=== PATIENT | male | born 1935 | race Caucasian/White ===

== ENCOUNTER 2020-07-27 15:50 | Emergency (ER) | payer OTHER ==
[~2020-07-27] VITALS: Ht 167.6 cm; Wt 75.3 kg
[~2020-07-27 15:50] MED LIST: AMLODIPINE BES2.5 MG PO; ASPIRIN EC81 MG PO; ATORVASTATIN CA10 MG PO; ATORVASTATIN CA20 MG PO; COMBIGAN EYE DRO5 ML OD; FISH OIL 1,0001 EAC2 PO; ISOSORBIDE MONO30 MG PO; LISINOPRIL10 MG PO; REFRESH TEARS15 ML OPTH; VITAMIN B-12500 MCG PO
[2020-07-27] MEDS ORDERED: LEVOTHYROXINE25 MCG PO (16:19)
[2020-07-27] MEDS ORDERED: AMLODIPINE BES2.5 MG PO (16:19)
[2020-07-27] MEDS ORDERED: LIPITOR10 MG (16:19)
== END 2020-07-27 19:20 | disposition home or self-care (01) ==
LOC: ED 15:50
DX: G44.89 Other headache syndrome (principal); E78.00 Pure hypercholesterolemia, unspecified; I10 Essential (primary) hypertension; Z87.891 Personal history of nicotine dependence; Z88.5 Allergy status to narcotic agent; Z88.1 Allergy status to other antibiotic agents; Z79.899 Other long term (current) drug therapy
CPT/HCPCS: 70496; 80053; 85025; 85610; 99284-25; Q9967

== ENCOUNTER 2021-12-16 05:40 | Day surgery (SDC) | payer MEDICARE ==
[~2021-12-16] VITALS: Ht 167.6 cm; Wt 70.0 kg
[~2021-12-16 05:40] MED LIST changes: +ASPIRIN EC325 MG PO; +FOLIC ACID0.4 MG PO; +LEVOTHYROXINE25 MCG PO; +LIPITOR10 MG; +PEPCID40 MG PO; +PROSCAR5 MG PO; +TIMOPTIC10 ML OU; +XALATAN2.5 ML OU
--- NOTE | 2021-12-16 09:50 | NUR ---
PATIENT ARRIVED FROM HIS PROCEDURE AT 0950, REPORT RECEIVED AT BEDSIDE. TURP WAS COMPLETED WITHOUT ANY ISSUES, HE IS ON CBI WITH PENA IN PLACE. URINE UPON ARRIVAL TO THE FLOOR IS A PALE CLEAR YELLOW.
--- NOTE | 2021-12-16 10:02 | NUR ---
12/16/21 1002 Melina Garnica 0907 PT ARRIVED IN PACU NON RESPONSIVE TO NOXIOUS STIMULI WITH OPA IN PLACE. 912 PT REACTIVE. OPA REMOVED. 919 C/O URGE TO VOID. REMINDED OF CATHETER. 929 TAKING SIPS OF WATER. NO C/O'S PAIN. 0950 TO ROOM 109. REPORT GIVEN TO RN. BED PLUGGED IN AND AT BEDSIDE.
--- NOTE | 2021-12-16 10:34 | NUR ---
CLAMPED CBI AT 1020, URINE AT THIS TIME IS CLEAR PALE YELLOW.
--- NOTE | 2021-12-16 11:03 | NUR ---
patient continues to have adequate output via the rocha, CBI has been clamped since 1020 without any changes. VSS. no reported pain.
--- NOTE | 2021-12-16 11:20 | NUR ---
CBI continues to be clamped, 100 irrigation in prior to clamping. 750 out in the rocha. 650 of urine output charted.
[2021-12-16] MEDS ORDERED: CIPRO500 MG PO (12:37)
[2021-12-16] MEDS ORDERED: OXYCODONE HCL5 MG PO (12:37)
--- NOTE | 2021-12-16 12:59 | NUR ---
patient requesting lunch, call a requested lunch for this patient, advising the kitchen this order had been in since 10 this morning, they will bring a tray up.
--- NOTE | 2021-12-16 15:07 | NUR ---
PATIENT SITTING UP IN BED. VITALS AND I&O'S CHARTED. CALL LIGHT IN REACH. NO FURTHER NEEDS AT THIS TIME.
--- NOTE | 2021-12-16 16:20 | NUR ---
patient is alert and oriented, just drowsy, takes his medicatiions without any difficulty. Continues to be on bed rest after his TURP, CBI has been clamped since 1120, with no change if urine color. Patient denies any pain, and denies any needs at this time.
--- NOTE | 2021-12-16 17:19 | NUR ---
Patient denies the need for pain medications. CBI continues to be able to be clamped, have assisted the patient in repositioned in between his naps. He continues to have pressure situation of needing to urinated, however the tubing has been assessed and there appears to be no blockage, and the rocha is draining without difficulty
--- NOTE | 2021-12-16 17:37 | NUR ---
I/Os completed, VSS, repositioned the patient with the assist of the PRINCIPAL MECHANICAL ENGINEER.
--- NOTE | 2021-12-16 17:38 | NUR ---
PATIENT SITTING UP IN BED WATCHING TV. VITALS AND I&O'S CHARTED. RN IN ROOM. FRESH WATER GIVEN. CALL LIGHT IN REACH. NO FURTHER NEEDS AT THIS TIME.
--- NOTE | 2021-12-16 19:52 | NUR ---
REPORT RECEIVED FROM DAY SHIFT RN. PT LYING IN BED ALERT AND ORIENTED. DENIES PAIN. PENA PATENT WITH CLEAR YELLOW URINE. CBI REMAINS CLAMPED. IVF INFUSING WNL. NO NEEDS AT THIS TIME. WHITE BOARD UPDATED. CALL LIGHT IN REACH.
--- NOTE | 2021-12-16 21:25 | NUR ---
EVENING ASSESSMENT COMPLETE. IV ABX INFUSING ORDERED. PT DENIES PAIN OR NAUSEA. PENA PATENT WITH CLEAR YELLOW URINE. CBI REMAINS CLAMPED. PENA CARE COMPLETE. SCD'S IN PLACE. ASSISTED PT TO REPOSITION IN BED. DENIES QUESTIONS OR CONCERNS. CALL LIGHT IN REACH.
--- NOTE | 2021-12-16 23:15 | NUR ---
PT RESTING IN BED WITH EYES CLOSED. RESPIRATIONS EVEN. PENA PATENT WITH CLEAR YELLOW URINE. NO BLEEDING OR CLOTS NOTED.
--- NOTE | 2021-12-17 00:46 | NUR ---
IV PUMP ALARMING, NEW BAG IVF INFUSING WNL ORDERED. pt RESTING IN BED WITH EYES CLOSED. NO DISTRESS NOTED.
--- NOTE | 2021-12-17 02:15 | NUR ---
PT RESTING WITH EYES CLOSED UPON ENTERING ROOM. AWAKENS EASILY. VS AND I&O COMPLETE. CBI REMAINS CLAMPED. PENA PATENT WITH CLEAR YELLOW URINE. NO CLOTS NOTED IN PENA TUBING. PT DENIES PAIN OR NAUSEA. NO FURTHER NEEDS. CALL LIGHT IN REACH.
--- NOTE | 2021-12-17 07:26 | NUR ---
PT UP TO BSC WITH SBA TO HAVE BM. CBI DC'D. CAP IN PLACE. PT BACK TO BED, MILADIS WELL. DENIES PAIN OR NAUSEA. NO FURTHER NEEDS.
--- NOTE | 2021-12-17 07:30 | NUR ---
REPORT RECIEVED AT THE BEDSIDE. UNEVENTUAL DOCTOR CHIROPRACTIC. PLAN TO DISCHARGE HOME THIS MORNING.
--- NOTE | 2021-12-17 08:07 | NUR ---
ASSESSMENT COMPLETED, UPDATED THE PATIENT ON HIS UPCOMING DISCHARGE. ASSESSED PENA CATHETER, CBI PORT IS CAPPED AND WILL REMAIN CAPPED UPON DISCHARGE. NO PAIN TO REPORT, NO NEEDS AT THIS TIME. PENA CATHETER INTACT DRAINING CLEAR YELLOW URINE.
[2021-12-17] MEDS ORDERED: AMLODIPINE BESYL5 MG PO (08:42)
[2021-12-17] MEDS ORDERED: SILODOSIN8 MG PO (08:48)
[2021-12-17] MEDS ORDERED: B COMPLEX1 EACH PO (09:23)
--- NOTE | 2021-12-17 09:24 | NUR ---
MED REC COMPLETE
--- NOTE | 2021-12-17 09:52 | NUR ---
LEFT VM WITH DR SOMERS REGARDING UPDATING HER PRIOR TO DISCHARGING PATIENT. UPDATED THE PATIENT AND HIS ON THE PLAN FOR DISCHARGE AFTER HIS ANTIBIOTIC FINISHES, AND PHARMACY HAS ALREADY COMPLETED HIS EDUCATION WITH THE PATIENT.
--- NOTE | 2021-12-17 10:12 | NUR ---
PATIENT UP TO THE BEDSIDE COMMODE.
--- NOTE | 2021-12-17 10:34 | NUR ---
I have been able to visit with Leon this morning regarding his care in the hospital, he feels he has been very well cared for and adds "I have great respect for nurses." Mr. Kessler plans to discharge to home with his , he states "I am well taken care of." also expresses no concerns regarding discharge. Both and Mrs. Kessler feel that they were given good education and were well prepared for this visit to the hospital. No concerns expressed regarding ability to purchase and diamond picker medications or meet home care needs including heat, utility, etc.
--- NOTE | 2021-12-17 10:54 | NUR ---
DISCHARGED DISCUSSED WITH THE PATIENT AND HIS , DEMONSTRATED WITH THE PATIENT AND HIS EMPTYING THE PENA CATHETER. QUESTIONS WERE ANSWERED TO THE BEST OF MY ABILITY. IV ACCESS REMOVED, SITE C/D/I
--- NOTE | 2021-12-18 12:25 | OR ---
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 NAMES OF PROCEDURES: 1. Urethral dilation using B[place] sounds from 14-Tristanian to 28-Tristanian. 2. Transurethral resection of the prostate. ANESTHESIA: General. ESTIMATED BLOOD LOSS: 25 mL. COMPLICATIONS: None. SPECIMENS: Prostate chips sent to pathology for evaluation. DRAINS: A 22-Tristanian three-way Davis catheter, connected to continuous bladder irrigation. INDICATIONS FOR PROCEDURE: Mr. Brasher is a very pleasant 86-year-old gentleman, who recently presented to me with complaints of a weak force of stream along with mild urgency and frequency symptoms. He was also getting up multiple times a night to void. He subsequently underwent diagnostic cystoscopy, which revealed [id number] trilobar BPH with a very large obstructing median lobe. Also, noted was grade 3 to 4 bladder wall trabeculation indicating chronic bladder outlet obstruction. After discussion of the risks and benefits of the procedure, the patient elected to undergo transurethral resection of the prostate. He presents today to undergo the aforementioned procedure. OPERATIVE FINDINGS: Electronically Signed By: DAYTON SOMERS MD 12/18/21 1225 PATIENT NAME: ABHI BRASHER OPERATIVE REPORT DATE OF : 35 REPORT #: [id number] PHYSICIAN: DAYTON SOMERS MD PCP: AMI LAKHANI MD REPORT IS CONFIDENTIAL AND NOT TO BE RELEASED WITHOUT AUTHORIZATION [facility] [address] [place], [place] [address] Signed 1. Digital rectal examination reveals a 62 g prostate that is soft, smooth and symmetric with no focal nodules. 2. Diagnostic cystoscopy reveals no evidence of any bladder masses, lesions, or stones. Grade 3 to 4 bladder wall trabeculation noted. In particular, there is a small hutch diverticulum located just superior to the left ureteral orifice. Otherwise, the bilateral ureteral orifices are in their normal anatomic location and effluxing clear urine. They are noted to not be adjacent to the large median lobe. 3. All three lobes of the prostate were resected today using a 24-Tristanian bipolar loop. Resection was performed down to the level of just proximal to the verumontanum. This was performed to avoid any potential iatrogenic damage to the external sphincter. At the end of procedure, all the prostate chips were collected and sent to pathology for evaluation. 4. At the end of procedure, a 22-Tristanian three-way Davis catheter was inserted into the patient's bladder and connected to continuous bladder irrigation. DESCRIPTION OF PROCEDURE: After informed consent was obtained, the patient was taken back to the operating room. He was transferred from the [facility] to the operating room table, where general anesthesia was induced. He was then placed in the dorsal lithotomy position and his genitalia were prepped and draped in a standard sterile fashion. His urethral meatus was then dilated using Bismarck sounds from 14-Tristanian to 28-Tristanian without difficulty. I then injected 60 mL of lubrication into the patient's pendulous urethra. A 26-Tristanian sheath was passed into the urethra using a visual obturator on a 30-degree lens. Diagnostic cystoscopy was then performed. Please see above findings. The visual obturator was then switched out for the resectoscope with a 24-Tristanian loop. I made note of the location of the ureteral orifices with respect to the bladder neck and median lobe. I then resected the entire median lobe of the prostate without difficulty. I then performed resection of the left and then right lateral lobes of the prostate down to the level of the verumontanum. Hemostasis was initially achieved using the bipolar loop. Once I was satisfied that a majority of the prostate tissue had been resected using the loop, I switched to the bipolar button which also was used to not only resect tissue but also to achieve and maintain hemostasis. Throughout the procedure, the patient's bladder was irrigated multiple times using a Yandy syringe to extract the prostate chips from the bladder. At the end of the procedure, I was able to confirm that the bilateral ureteral orifices were still in their natural state and effluxing clear urine. Once hemostasis was achieved to my satisfaction, the resectoscope was removed, leaving the 26-Tristanian sheath in place. I inserted a 0.035 Sensor wire through the sheath into the patient's bladder. The sheath was then removed fully intact. Over the Sensor wire, I passed a 22-Tristanian three-way Davis catheter into the patient's bladder and filled the balloon with 30 mL of sterile water. The catheter was then manually irrigated to confirm placement. The catheter was then connected to continuous bladder irrigation. The procedure was then terminated. The patient tolerated the procedure well without any Electronically Signed By: DAYTON SOMERS MD 12/18/21 1225 PATIENT NAME: ABHI BRASHER OPERATIVE REPORT DATE OF : 35 REPORT #: [id number] PHYSICIAN: DAYTON SOMERS MD PCP: AMI LAKHANI MD REPORT IS CONFIDENTIAL AND NOT TO BE RELEASED WITHOUT AUTHORIZATION [facility] [address] [place], [place] [address] Signed complication. He will now be transferred to the postanesthesia care unit in stable condition. DISPOSITION: I discussed the details of today's procedure with the patient's and answered all of her questions. Overall, the procedure went very well and he shall be very happy with the result since he is no longer actively obstructed. He will stay with me george in the hospital and his diet will be advanced as tolerated. He will be given pain control and antiemetics as needed. His CBI will also be slowly weaned off to keep his urine clear to light pink in color. I anticipate that he will be discharged to home tomorrow morning with a Davis catheter gravity drainage. He was sent home with oxycodone 5 mg one-half tablet p.o. q.6 hours p.r.n. pain, dispense #10, along with Cipro 500 mg p.o. b.i.d. for a total of 7 days. He will be scheduled to return to clinic in two days to undergo a voiding trial. MD MARIO Bernardo/ARLEN /[id number] Copies: ~ Electronically Signed By: DAYTON SOMERS MD 12/18/21 1225 PATIENT NAME: ABHI BRASHER OPERATIVE REPORT DATE OF : 35 REPORT #: [id number] PHYSICIAN: DAYTON SOMERS MD PCP: AMI LAKHANI MD REPORT IS CONFIDENTIAL AND NOT TO BE RELEASED WITHOUT AUTHORIZATION
--- NOTE | 2021-12-20 18:26 | PATH ---
[facility] [address] [facility] [place] [address] Signed SPECIMEN(S): A PROSTATE CHIPS SPECIMEN SOURCE: A. PROSTATE CHIPS CLINICAL HISTORY: History of BPH. TURP. FINAL PATHOLOGIC DIAGNOSIS: Prostate chips, transurethral resection: - Benign prostatic hyperplasia. - Focal cauterized atypical glands, see Comment. COMMENT: Identified is a very small focus of cauterized glands with intraluminal mucin. Nuclear features of adenocarcinoma are not seen, but cautery artifact limits interpretation. This focus is not completely present on the TRICAP stained section, but some of the glands do show lost basal cells with p63 and HMWCK. The differential diagnosis includes atypical small acinar proliferation (VALERIY), partial atrophy, or adenosis. NAL:cml:C2NR MICROSCOPIC EXAMINATION: Histologic sections of all submitted blocks are examined by light microscopy. These findings, together with the gross examination, support the pathologic diagnosis. TRICAP multiplex stain (with appropriately staining controls) were performed to evaluate foci of crowded glands. One focus shows small glands in a lobular configuration with intraluminal crystalloids. Nuclear features of adenocarcinoma are absent. This focus has weak epithelial P504S positive and patchy basal cells with p63 and HMWCK. This is interpreted as adenosis. The second focus shows small, crowded glands that are partially cauterized but have slightly blue-tinged intraluminal mucin. The glands in this focus have some decreased basal cell staining with p63 and HMWCK, but epithelial P504S is extremely scant and weak. The cautery artifact limits interpretation, and the differential diagnosis includes partial atrophy, adenosis or atypical small acinar proliferation (VALERIY). The third section with a TRICAP demonstrates retained basal cells in all glands, as shown with p63 and HMWCK, PATIENT NAME: ABHI BRASHER PATHOLOGY DATE OF : 35 REPORT #: [id number] PHYSICIAN: DOUGLAS PATHOLOGY PCP: AMI LAKHANI MD REPORT IS CONFIDENTIAL AND NOT TO BE RELEASED WITHOUT AUTHORIZATION [facility] [address] [place], [place] [address] Signed and no significant P504S positivity. GROSS DESCRIPTION: The specimen, labeled "AQUILES, A," and designated on the requisition "prostate chips," is received in formalin and consists of fofana-pink, rubbery tissue fragments measuring 7.2 x 6.0 x 1.4 cm in aggregate and weighing 10.7 grams. Photonics Technician sections are submitted in cassettes (A1-A6). AT (under the direct supervision of a pathologist) Following initial examination of HE slides, Dr. Harper requests six additional blocks. A7-A12 remaining tissue; entirely submitted AT The Gross Description was prepared using a voice recognition system. The report was reviewed for accuracy; however, sound-alike word errors, addition and/or deletions may occur. If there is any question about this report, please contact Client Services. ADDITIONAL NOTES: Immunohistochemical and/or in situ hybridization studies were performed on this case with the appropriate positive controls that react as expected. This test was developed and its performance characteristics determined by [facility]. It has not been cleared or approved by the U.S. Food and Drug Administration. The FDA has determined that such clearance or approval is not necessary. This test is used for clinical purposes. It should not be regarded as investigational or for research. [facility] is certified under the Clinical Laboratory Improvement Amendments of 1988 (CLIA) as qualified to perform high complexity clinical laboratory testing. This assay has not been validated for specimens that have been decalcified. The technical component was performed by [facility], [address] [place] [id number] (CLIA# [id number]). Professional interpretation was performed by [facility], [address] [place] [id number] (CLIA# [id number]). PERFORMING LABORATORY: The technical component was performed by [facility], [address] [place] [id number] (CLIA# [id number]). Professional interpretation was performed by [facility] PATIENT NAME: ABHI BRASHER PATHOLOGY DATE OF : 35 REPORT #: [id number] PHYSICIAN: DOUGLAS MEDINA PCP: AMI LAKHANI MD REPORT IS CONFIDENTIAL AND NOT TO BE RELEASED WITHOUT AUTHORIZATION [facility] [address] [place] [address] [address] (CLIA# [id number]). Diagnostician: Ellie Harper MD Pathologist Electronically Signed 12/20/2021 Copies: ~ PATIENT NAME: ABHI BRASHER PATHOLOGY DATE OF : 35 REPORT #: [id number] PHYSICIAN: DOUGLAS PATHOLOGY PCP: AMI LAKHANI MD REPORT IS CONFIDENTIAL AND NOT TO BE RELEASED WITHOUT AUTHORIZATION
== END 2021-12-17 11:00 | disposition home or self-care (01) ==
LOC: DS 05:40 → MS 09:50 → DS 12-17 11:00
PROVIDERS: ATTEND Urology
PROC: 0VB08ZZ Excision of Prostate, Via Natural or Artificial Opening Endoscopic (ICD-10-PCS; principal; 2021-12-16 07:00)
DX: N40.1 Benign prostatic hyperplasia with lower urinary tract symptoms (principal); R39.15 Urgency of urination; R35.0 Frequency of micturition; Z88.1 Allergy status to other antibiotic agents; Z88.5 Allergy status to narcotic agent; K21.9 Gastro-esophageal reflux disease without esophagitis; Z90.49 Acquired absence of other specified parts of digestive tract; Z85.038 Personal history of other malignant neoplasm of large intestine; Z87.891 Personal history of nicotine dependence; E78.5 Hyperlipidemia, unspecified; I10 Essential (primary) hypertension; G47.33 Obstructive sleep apnea (adult) (pediatric); E03.9 Hypothyroidism, unspecified; I25.10 Atherosclerotic heart disease of native coronary artery without angina pectoris; C43.9 Malignant melanoma of skin, unspecified; D72.821 Monocytosis (symptomatic); Z20.822 Contact with and (suspected) exposure to COVID-19
CPT/HCPCS: 87502; 88305; 88344; C1769; J0744; J1100; J1580; J1885; J2405; J2704; J2765; J3010; J3370; J7030; J7060; J7121; U0003

== ENCOUNTER 2022-04-10 10:24 | Day surgery (SDC) | payer MEDICARE ==
[~2022-04-10] VITALS: Ht 167.6 cm; Wt 68.2 kg
[~2022-04-10 10:24] MED LIST changes: +AMLODIPINE BESYL5 MG PO; +B COMPLEX1 EACH PO; +CIPRO500 MG PO; +OXYCODONE HCL5 MG PO; +SILODOSIN8 MG PO
--- NOTE | 2022-04-10 12:31 | NUR ---
04/10/22 1231 Kathleen Cuellar 1222-PATIENT ARRIVED TO PACU ON 6L MASK RR EVEN. PATIENT AWAKE DROWSY LAYING PRONE BANDAID TO LEFT LOWER BACK CDI. IVF INFUSING. 1230-PATIENT ON RA REPORTS "READY TO MOVE OVER" RN ASSISTED PATIENT TO TURN TOWARD LEFT SIDE. RA 97% RR EVEN. DENIES PAIN OR NAUSEA. HOB ELEVATED
--- NOTE | 2022-04-18 16:38 | PATH ---
[facility] [address] [place], [place] [address] Signed THIS IS AN ADDENDUM REPORT SPECIMEN(S): A BONE MARROW - CORE SPECIMEN(S): B BONE MARROW - ASPIRATION SPECIMEN(S): C FLOW CYTOMETRY, BM EDTA ASP CLINICAL HISTORY: Bone marrow biopsy. 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 History of mild unexplained lymphocytosis. See attached. D53.9 (nutritional anemia, unspecified) DIAGNOSIS SUMMARY: Peripheral blood - Mild normocytic anemia. - No circulating blasts are identified. Bone marrow biopsy and aspiration: - Normocellular marrow, 25%, with less than 1% blasts. - Trilineage hematopoiesis with no significant dyspoiesis. - Increased marrow iron stores by Prussian Blue stain. - FISH panel for myelodysplasia is normal - No malignancy is identified. DIAGNOSTIC COMMENT: The marrow is normocellular with no significant dyspoiesis. Marrow iron stores are increased by Prussian Blue stain with no ring sideroblasts. The FISH panel for MDS is normal. Overall, an anemia of chronic disease is favored. Clinical correlation with reticulocyte count and pending chromosome analysis is needed. JLP:C2NR HISTORICAL SUMMARY: See above clinical history. 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 The bone marrow is to evaluate the anemia. PERIPHERAL BLOOD: HEMOGRAM (04/10/2022): WBC 11.3 K/ul, RBC 3.92 M/ul, HGB 12.6 g/dl, HCT 38.6%, MCV 98.6 fl, MCH 32.2 pg, MCHC 32.6 g/dl, RDW 14.0%, PLT 302 K/ul, MPV 6.7 fl. AUTOMATED DIFFERENTIAL COUNT: Neutrophils 69.8%, lymphocytes 18.5%, monocytes 9.3%, eosinophils 1.7%, basophils 0.7%. PATIENT NAME: ABHI BRASHER PATHOLOGY DATE OF : 35 REPORT #: [id number] PHYSICIAN: DOUGLAS PATHOLOGY PCP: AMI LAKHANI MD REPORT IS CONFIDENTIAL AND NOT TO BE RELEASED WITHOUT AUTHORIZATION [facility] [address], [place] [address] Signed The red blood cells are normocytic and normochromic with minimal anisopoikilocytosis. Focal RBC echinocytes are noted. The neutrophils are unremarkable. Lymphocytes are composed of small mature appearing forms. Platelets appear normal in number and morphology with no platelet clumping or RBC microangiopathic effect identified. No blasts are identified. BONE MARROW: ASPIRATE SMEARS/TOUCH IMPRINT: The aspirate smears are adequate for evaluation. Scattered erythroid precursors show adequate maturation with essentially normal morphology. The myeloid precursors show full maturation with unremarkable morphology. There is no increase in blasts. Megakaryocytes are identified with a normal morphology. BONE MARROW DIFFERENTIAL COUNT (300 cells): Blasts less than 1%, promyelocytes 1%, myelocytes 3%, metamyelocytes/bands/segs 45%, erythroid precursors 30%, lymphocytes 12%, monocytes 4%, eosinophils 3%, plasma cells 1%. M:E ratio: 1.7:1 BONE MARROW CORE BIOPSY/ASPIRATE CLOT/CELL BLOCK: The aspirate clot section and the core biopsy are adequate for evaluation. The core biopsy demonstrates unremarkable trabecular bone. The cellularity is normal for age, estimated at 25%. The erythroid precursors are within normal limits with essentially unremarkable maturation. The myeloid precursors are unremarkable with no significant dyspoiesis. Blasts are not increased. Megakaryocytes appear normal in number and in morphology. No granulomas, atypical lymphoid aggregates or foreign malignant cells are detected. SPECIAL STAINS (with adequate controls): - iron (aspirate smear): Increased marrow iron stores by Prussian Blue stain. No ring sideroblasts are identified. - iron (cell block): Insufficient marrow spicules are present for evaluation of marrow iron stores. - PAS (block A1): Normal number and morphology of megakaryocytes. IMMUNOHISTOCHEMISTRY STAINS (performed on block B1 with adequate controls). - CD138: 1-2% - CD71: 30% - CD34: Less than 1% FLOW CYTOMETRY: Bone marrow, flow cytometry: - No diagnostic abnormal populations are identified by flow cytometry. - See Comment. PATIENT NAME: ABHI BRASHER PATHOLOGY DATE OF : 35 REPORT #: [id number] PHYSICIAN: DOUGLAS PATHOLOGY PCP: AMI LAKHANI MD REPORT IS CONFIDENTIAL AND NOT TO BE RELEASED WITHOUT AUTHORIZATION [address] [address] Signed COMMENT: The majority of gated lymphocytes are T-cells with a normal marking pattern. The B-cells are also unremarkable with no light chain restriction or aberrant marking. Blasts are not increased. The myeloid and monocytic gated cells are unremarkable with no aberrant marking. No plasma cell clonality is detected. FLOW CYTOMETRY ANALYSIS: FLOW DIFFERENTIAL (% Total CD45 vs. SSC gating): Myeloid 66%; Lymphoid 17%; Monocyte 4%; Dim CD45/Blast: 1%. Cell Count: 5.9 x 10*3/uL. POPULATION ANALYSIS: BLASTS: Analysis of the dim CD45 gate demonstrates 1% myeloblasts and 2% hematogones. LYMPHOID CELLS: The lymphocyte gate comprises 17% of total events and includes 64% T-cells with a CD4:CD8 ratio of 1.3:1 and normal jacobson T-cell antigen expression. 25% of lymphocytes are polyclonal B-cells with a kappa:lambda ratio of 2.1:1. The remainders are NK-cells. MYELOID CELLS: The myeloid population comprises 66% of the total events. No aberrant or immature immunophenotypic expression is detected. MONOCYTES: The monocyte population comprises 4% of the total events. Monocytes are not increased. No aberrant immunophenotypic expression is detected. PLASMA CELLS: An increased number of plasma cells are observed in the screening gate of CD45 neg-dim/CD38. For this reason, select additional antibodies are run to further characterize the plasma cells. 1.6% polytypic plasma cells are detected (n=804) expressing CD45 dim-neg, CD38 BR, CD138 MOD, CD19 (variable), and CD56 (in minor subset) while negative for CD20 with a ckappa:clambda ratio of 1.6:1. ANTIBODIES USED: Initial Antibodies Used: KAPPA, LAMBDA, CD20, CD10, CD19, CD23, CD38, CD16, CD56, CD8, CD5, CD2, CD4, CD7, CD3, CD14, CD33, CD13, HLADR, CD34, CD117, CD15, CD45 Additional Antibodies (necessary for further plasma cell analysis): ckappa, clambda, CD138. Total Antibodies Used: 26. TCS FINAL DIAGNOSIS PERFORMED BY: Natanael Timmons MD, Apr 11 2022 1:58PM CYTOGENETICS: Chromosome analysis is pending, and the result will be reported in an addendum. PATIENT NAME: ABHI BRASHER PATHOLOGY DATE OF : 35 REPORT #: [id number] PHYSICIAN: DOUGLAS PATHOLOGY PCP: AMI LAKHANI MD REPORT IS CONFIDENTIAL AND NOT TO BE RELEASED WITHOUT AUTHORIZATION [facility] [address], [place] [address] Signed FISH ANALYSIS: A FISH panel for MDS is pending, and the result will be reported in an addendum. GROSS DESCRIPTION: Two specimens are received in two containers, labeled "AQUILES." A. The specimen, labeled "AQUILES, bone marrow core biopsy," is received in formalin and consists of one pink-fofana, needle core, bone tissue fragment that measures 1.5 cm in length and up to 0.2 cm in diameter. Specimen is left for decalcification in [facility] prior to processing. Specimen is entirely submitted in cassette (A1). B. The specimen, labeled "AQUILES, bone marrow clot," is received in formalin and consists of one coagulated blood tissue fragment that measures 2.0 x 1.5 x 0.7 cm. Specimen is entirely submitted in cassette (B1). JS (under the direct supervision of a pathologist) The Gross Description was prepared using a voice recognition system. The report was reviewed for accuracy; however, sound-alike word errors, addition and/or deletions may occur. If there is any question about this report, please contact Client Services. ADDITIONAL NOTES: Immunohistochemical and/or in situ hybridization studies were performed on this case with the appropriate positive controls that react as expected. This test was developed and its performance characteristics determined by [facility]. It has not been cleared or approved by the U.S. Food and Drug Administration. The FDA has determined that such clearance or approval is not necessary. This test is used for clinical purposes. It should not be regarded as investigational or for research. [facility] is certified under the Clinical Laboratory Improvement Amendments of 1988 (CLIA) as qualified to perform high complexity clinical laboratory testing. This assay has not been validated for specimens that have been decalcified. In this case, certain antibodies were performed by both immunohistochemistry and flow cytometry analysis because flow cytometry analysis did not fully explain all the light microscopic findings. Immunohistochemistry aided in the analysis. Both methods are deemed medically necessary in this case. This test was developed and its performance characteristics determined by PATIENT NAME: ABHI BRASHER PATHOLOGY DATE OF : 35 REPORT #: [id number] PHYSICIAN: DOUGLAS MEDINA PCP: AMI LAKHANI MD REPORT IS CONFIDENTIAL AND NOT TO BE RELEASED WITHOUT AUTHORIZATION [facility] [address] [place] [address] Signed [facility]. It has not been cleared or approved by the US Food and Drug Administration. The FDA does not require this test to go through premarket FDA review. This test is used for clinical purposes. It should not be regarded as investigational or for research. This laboratory is certified under the Clinical Laboratory Improvement Amendments (CLIA) as qualified to perform high complexity clinical laboratory testing. PERFORMING LABORATORY: The technical component was performed by [facility], [address] , [place] [address] (CLIA#: [id number]). Professional interpretation was performed by [facility] - [facility], [address] [place] [id number] (CLIA#: [id number]). A portion of the technical component was performed by [facility], [address] [place] [id number] (CLIA# [id number]). A portion of the technical component was performed by [facility], [address] [place] [address] (CLIA#: [id number]). Professional interpretation was performed at [facility], [address] [place] [address]. IMAGES: A: [id number] A: [id number] SPECIMEN SOURCE: A. 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 History of mild unexplained lymphocytosis. See attached. D53.9 (nutritional anemia, unspecified) FISH (fluorescence in situ hybridization) RESULT: Not Detected INTERPRETATION: 5q deletion/monosomy 5: Not detected 7q deletion/monosomy 7: Not detected Trisomy 8: Not detected 20q deletion: Not detected KMT2A (MLL) rearrangement: Not detected Fluorescence in situ hybridization (FISH) analysis was performed using a specific set of probes for myelodysplastic syndrome (MDS). Counts for all probe PATIENT NAME: ABHI BRASHER PATHOLOGY DATE OF : 35 REPORT #: [id number] PHYSICIAN: INCYTE PATHOLOGY PCP: AMI LAKHANI MD REPORT IS CONFIDENTIAL AND NOT TO BE RELEASED WITHOUT AUTHORIZATION [facility] [address] [place], [place] [address] Signed signals were within the normal reference range. No evidence of deletion 5q, 7q or 20q or monosomy 5 or 7, trisomy 8, or KMT2A rearrangement was detected. This finding represents a NORMAL result. This analysis is limited to abnormalities detectable by the specific probes included in the study. FISH should be interpreted within the context of a full cytogenetic analysis and hematologic evaluation. ISCN: Probe Set Detail: EGR1/Q2T329: nuc boubacar 5p15.31(E7V284j9), 5q31(EGR1x2)[200] T7L283/CEP7: nuc boubacar 7q31(W6Y537y6),7q11.2q11.21(CEP7x2)[200] CEP8: nuc boubacar 8q11.1q11.21(CEP8x2)[200] U43Z224: nuc boubacar 20q12(F40Q156f7)[200] KMT2A (MLL): nuc boubacar 11q23(5'KMT2A,3'KMT2A)x2(5'KMT2A con 3'MCV2Hn6)[200] References: Deven Rodríguez (2013) Hematology Am Soc Hematol Educ Program 2013:504-10. PMID [id number] Mao Slater and Elaine Rossi (2011) Hematology 16(3):131-8. PMID: [id number] FISH Analysis Summary: Nuclei Scored: 200 Scoring Method: Manual; CPT Code 89465 Number of Probe units: 4 Multiplex Cells analyzed: Interphase Probe sets: Chrom 8: JA 8, Chrom 20: C72H872, Chrom 5: EGR1, Chrom 5: U2F249, Chrom 7: CEN7, Chrom 7: V5Y2274, Chrom 11: KMT2A (MLL) 3', Chrom 11: KMT2A (MLL) 5 ADDITIONAL NOTES: This test was developed and its performance characteristics determined by [facility] It has not been cleared or approved by the US Food and Drug Administration. The [employer] DNA probe vendor for this study was [employer]. PERFORMING LABORATORY: The technical preparation and professional interpretation were performed by [facility], [address] [place] [address] (CLIA#: [id number]). FINAL DIAGNOSIS PERFORMED BY: Blanquita Dejesus MD, Pathologist Apr 18 2022 9:05AM REASON FOR ADDENDUM: To add results of additional testing. PATIENT NAME: ABHI BRASHER PATHOLOGY DATE OF : 35 REPORT #: [id number] PHYSICIAN: DOUGLAS PATHOLOGY PCP: AMI LAKHANI MD REPORT IS CONFIDENTIAL AND NOT TO BE RELEASED WITHOUT AUTHORIZATION [facility] [address] [place] [address] [place], [place] [address] Signed Diagnostician: Blanquita Dejesus MD Pathologist Diagnostician: Natanael Timmons MD Pathologist Electronically Signed 04/18/2022 Copies: ~ PATIENT NAME: ABHI BRASHER PATHOLOGY DATE OF : 35 REPORT #: [id number] PHYSICIAN: DOUGLAS PATHOLOGY PCP: AMI LAKHANI MD REPORT IS CONFIDENTIAL AND NOT TO BE RELEASED WITHOUT AUTHORIZATION
== END 2022-04-10 12:55 | disposition home or self-care (01) ==
LOC: OPS 10:24 → DS 10:24 → OPS 12:00 → DS 12:00 → OPS 12:55
PROVIDERS: ATTEND Specialist
PROC: 07DR3ZX Extraction of Iliac Bone Marrow, Percutaneous Approach, Diagnostic (ICD-10-PCS; principal; 2022-04-10 12:00)
DX: D61.9 Aplastic anemia, unspecified (principal); I10 Essential (primary) hypertension; Z87.891 Personal history of nicotine dependence
CPT/HCPCS: 36415; 83615; 85025; 88184; 88185; 88305; 88311; 88313; 88341; 88342; 88377; J2704; J7121

== ENCOUNTER 2022-09-03 00:40 | Inpatient (IN) | payer MEDICARE ==
[~2022-09-03] VITALS: Ht 167.6 cm; Wt 71.8 kg
--- NOTE | ~2022-09-03 | DS ---
[facility] [address], [place] [address] Draft ADMISSION DATE: 09/03/2022 DISCHARGE DATE: 09/05/2022 REASON FOR ADMISSION: Small bowel obstruction (recurrent). HISTORY: This 87-year-old white man is well known to me from the past having undergone right extended hemicolectomy for colon cancer in 2004. He generally maintains good health overall. The day prior to admission, he began having nausea without associated vomiting. Symptoms worsened. He was evaluated in the emergency room by Dr. Ray at approximately midnight. Although, I was not on-call, the patient asked if I would admit him as I have dealt with his problems in the past for many years. On that basis, he was admitted under direct care by me. PERTINENT PHYSICAL EXAMINATION: GENERAL: Showed a pleasant white man who looks to be uncomfortable, but nontoxic. VITAL SIGNS: Height was 5 feet 6 inches, weight is 71 kg, BMI 25.6. CHEST: Clear. HEART: Regular without murmur. ABDOMEN: Nondistended and soft. There is no focal tenderness. Midline incision is noted and well healed. There is no sign of hernia. IMAGING DATA: CT scan showed dilated loops of small bowel highly consistent with small bowel obstruction. LABORATORY STUDIES: Showed white count of 12.5, hematocrit 39.3, platelets 318,000. Glucose 116. Liver enzymes normal. Lipase 61. Urinalysis showed 21-40 red cells per high-power field of uncertain significance at this time. Serology confirm no evidence of coronavirus, RSV, or influenza. IMAGING DATA: Plain chest x-ray showed nasogastric tube being be in good position. HOSPITAL COURSE: The patient had a nasogastric tube decompression, which drained copious amounts of bilious fluid. A followup KUB the next day on September 04, 2022, confirmed a PATIENT NAME: ABHI BRASHER DISCHARGE SUMMARY DATE OF : 35 REPORT #: [id number] PHYSICIAN: CHINA FULTON MD PCP: ARASH HYATT MD REPORT IS CONFIDENTIAL AND NOT TO BE RELEASED WITHOUT AUTHORIZATION [facility] [address], [place] [address] Draft nonobstructive bowel gas pattern. The nasogastric tube was removed and he was begun on a liquid diet, which he tolerated well. His diet was advanced ultimately to a regular diet, which he tolerated well showing bowel movements and bowel function return. By the day of discharge, he is ambulating well, has no abdominal pain, no distention, having bowel movements and tolerating regular diet. It is uncertain regarding his urinalysis abnormalities. Repeat urinalysis may be appropriate to consider a hematuria, not associated white cell elevation. Neoplastic disease of bladder, ureters or kidney would be a consideration. DISCHARGE MEDICATIONS: Will include atorvastatin 20 mg p.o. at bedtime, Synthroid 25 mcg p.o. daily, Pepcid 40 mg p.o. daily, timolol maleate/Timoptic 0.5% one drop each eye b.i.d., Proscar 5 mg p.o. daily, latanoprost/Xalatan 0.005% eyedrops one drop each eye at bedtime for glaucoma, amlodipine 5 mg one tablet p.o. daily, vitamin B complex one tablet p.o. daily, and vitamin D 1000 units p.o. daily. DISCHARGE DIAGNOSES: 1. Recurrent small bowel obstruction with resolution by conservative measures. 2. Distant history of extended right colectomy for cancer in 2004. 3. Glaucoma. 4. Hypothyroidism. 5. Dyslipidemia. 6. Abnormal urinalysis on ER evaluation, repeat pending. FOLLOWUP PLANS: He will return if there are any problems, and I will additionally followup with him if his urinalysis is abnormal, for which additional evaluation may be necessary. MD EBER Sarabia/MODL /[id number] cc: Arash Hyatt MD PATIENT NAME: ABHI BRASHER DISCHARGE SUMMARY DATE OF : 35 REPORT #: [id number] PHYSICIAN: CHINA FULTON MD PCP: ARASH HYATT MD REPORT IS CONFIDENTIAL AND NOT TO BE RELEASED WITHOUT AUTHORIZATION [facility] [address], [place] [address] Draft Copies: ARASH HYATT MD ~ PATIENT NAME: ABHI BRASHER DISCHARGE SUMMARY DATE OF : 35 REPORT #: [id number] PHYSICIAN: CHINA FULTON MD PCP: ARASH HYATT MD REPORT IS CONFIDENTIAL AND NOT TO BE RELEASED WITHOUT AUTHORIZATION
[~2022-09-03 00:40] MED LIST changes: -FOLIC ACID0.4 MG PO; +FOLIC ACID1 MG PO
[2022-09-03] MEDS ORDERED: DORZOLAMIDE HCL10 ML OP (01:16)
[2022-09-03] MEDS ORDERED: B-1100 MG PO (01:20)
[2022-09-03] MEDS ORDERED: VITAMIN D325 MCG PO (01:21)
--- NOTE | 2022-09-03 03:45 | NUR ---
REC'D PT TO FLOOR UPON RECEIVING BEDSIDE HANDOFF REPORT FROM ED NURSEMIKEY. PERFORMED SKIN CHECK WITH ED NURSE. PT VSS, NO C/O, NO PAIN. WILL CONTINUE TO MONITOR AND FOLLOW POC.
--- NOTE | 2022-09-03 07:11 | NUR ---
PT WITH WEI HATFIELD, NO C/O. HANDED OFF CARE OF PT TO DAY NURSE UPON GIVING BEDSIDE REPORT.
--- NOTE | 2022-09-03 07:20 | NUR ---
RECEIVED SHIFT REPORT. PT LAYING IN BED, AWAKE. DENIES FURTHER NEEDS. CALL LIGHT WITHIN REACH
--- NOTE | 2022-09-03 10:33 | NUR ---
MORNING ASSESSMENT COMPLETE. PT DENIES PAIN AND NAUSEA. BOWEL TONES ACTIVE IN ALL QUDRANTS, NON TENDER WITH PALPATION. NG TUBE DRAINING YELLOW/GREEN WITH INTETERMITTENT SUCTION. DENIES FURTHER NEEDS. CALL LIGHT WITHIN REACH.
--- NOTE | 2022-09-03 10:53 | NUR ---
NEW BAG LR IVF HANGING AT THIS TIME. CASE MANAGEMENT AT BEDSIDE. CALL LIGHT WITHIN REACH. BED ALARN ON.
--- NOTE | 2022-09-03 10:55 | NUR ---
Spoke with Segundo ADHIKARI". He states he lives with his in a 1 story home with 1 step. He states he is active at home with outside work. He drives and so does his . just went home. He does not use any DME. He has three sons, and the one in town assists them as needed. Pt states in 2004 he had problems and had surgery on his bowel. He feels he has the sbo as he hadn't eaten nuts in 17 years and yesterday he ate [address] Ramirez arrived and discussed plan with pt. Pt has NG in place and hopefully, obstruction will clear. Pt plans on dc to home when cleared medically and his will transport.
--- NOTE | 2022-09-03 13:21 | NUR ---
PT HAS LOTS OF ACTIVITY IN HIS RM. SLIPPED IN AND ASKED IF PT WOULD LIKE TO HAVE RAW SILK GRADER VISIT. HE SAID HE WOULD AND HAS ATTENDED MASS SEVERAL TIMES LATELY IN [place]. PT HAS NGT IN USE. WILL INFORM FR TREVIZO. WILL FOLLOW
--- NOTE | 2022-09-03 15:00 | NUR ---
AFTERNOON ASSESSMENT COMPLETE. NO NEW CHANGES SINCE MORNING ASSESSMENT. CALL LIGHT WITHIN REACH
--- NOTE | 2022-09-03 15:13 | NUR ---
MORNING ASSESSMENT COMPLETE. NO NEW CHANGES SINCE MORNING ASSESSMENT. REMAINS CONNECTED TO INT. SUCTION. CALL LIGHT WITHIN REACH. BED ALARM ON.
--- NOTE | 2022-09-03 18:14 | NUR ---
pt complains of nausea. prn nausea medication administered (per emar). call light in reach. stitcher standard machine in room.
--- NOTE | 2022-09-03 19:05 | NUR ---
RECEIVED REPORT FROM DIPIKA RN. PT RESTING IN BED. IV FLUIDS INFUSING DIRECTED, SITE WNL. NG TUBE IN PLACE W/LOW INTERMIT SUCTION TO WALL, OUTPUT IS YELLOW/BROWN IN COLOR. PT REPORTS NO PAIN/NAUSEA AT THIS TIME. CALL LIGHT WITHIN REACH, NO FURTHER NEEDS AT THIS TIME.
--- NOTE | 2022-09-03 21:05 | NUR ---
PT RESTING IN BED AND REPORTS NEED TO VOID, STANDBY ASSIST TO RESTROOM, URINE OUTPUT RECORDED. DIESEL PILE HAMMER OPERATOR PERFORMED. VSS. PT IS A&O X4. NG TUBE TO LOW INTERMIT WALL SUCTION W/YELLOWISH BROWN OUTPUT, OUTPUT RECORDED. SKIN IS INTACT, NO SIGNS OF BREAKDOWN AT THIS TIME. LUNGS ARE CLEAR THROUGHOUT, PT USED IS X3 UP TO 2000 JACY. BOWEL TONES ARE HYPOACTIVE X4. PT REPORTS NO TENDERNESS OR NAUSEA AT THIS TIME. PULSES FELT THROUGHOUT, REGULAR RHYTHM AT THIS TIME. CALL LIGHT WITHIN REACH, NO FURTHER NEEDS AT THIS TIME.
--- NOTE | 2022-09-03 22:47 | NUR ---
PT IN BED RESTING W/EYES CLOSED. RESPIRATIONS ARE EVEN AND UNLABORED, NO SIGNS OF DISTRESS. NG TUBE TO LOW INTERMIT WALL SUCTION, OUTPUT IS BROWN/YELLOW. IV FLUIDS INFUSING DIRECTED. CALL LIGHT WITHIN REACH.
--- NOTE | 2022-09-04 01:47 | NUR ---
PT RESTING W/EYES CLOSED. RESPIRATIONS ARE EVEN AND UNLABORED, NO SIGNS OF DISTRESS. CALL LIGHT WITHIN REACH. NG TUBE TO LOW INTERMIT SUCTION W/BROWNISH YELLOW OUTPUT. IV FLUIDS INFUSING DIRECTED, SITE WNL.
--- NOTE | 2022-09-04 02:27 | NUR ---
IN PT ROOM FOR VS AND ASSESSMENT. PT RESTING W/EYES CLOSED. AWAKENS TO VOICE. ORIENTED TO ALL BUT DATE/TIME. NO ACUTE CHANGES FROM PREVIOUS ASSESSMENT. BOWEL TONES ARE ACTIVE X4. PT REPORTS NO PAIN OR NAUSEA AT THIS TIME. VSS. IV FLUIDS INFUSING DIRECTED, SITE WNL. SUCTION SET TO MOD INTERM WALL SUCTION. CALL LIGHT WITHIN REACH, NO FURTHER NEEDS AT THIS TIME.
--- NOTE | 2022-09-04 04:12 | NUR ---
PT RESTING W/EYES CLOSED. RESPIRATIONS ARE EVEN AND UNLABORED, NO SIGNS OF DISTRESS. CALL LIGHT WITHIN REACH. NG TUBE TO MOD INTERMIT SUCTION W/BROWNISH YELLOW OUTPUT. IV FLUIDS INFUSING DIRECTED.
--- NOTE | 2022-09-04 05:31 | NUR ---
pt refused geting up to chair at this time. vitals and is and os complete. no further needs. call light within reach
--- NOTE | 2022-09-04 06:49 | NUR ---
IN PT ROOM TO CHANGE NG TUBE COLLECTION CUP. I/O RECORDED. NG TUBE TO INTERMIT MOD SUCTION W/BROWNISH YELLOW OUTPUT. PT REPORTS NO PAIN OR NAUSEA AT THIS TIME. CALL LIGHT WITHIN REACH. ICE WATER PROVIDED. NO FURTHER NEEDS AT THIS TIME.
--- NOTE | 2022-09-04 07:45 | NUR ---
REPORT RECEIVED FROM NIGHT RN AND PT CARE RESUMED. PT. IS ALERT AND ORIENTED TO ALL. DENIES PAIN OR NAUSEA. NG SUCTIONING GREEN DRAINAGE. ASSESSMENT COMPLETED. PT. AMBULATED TO CHAIR WITH SBA. BROUGHT CLEAR DRINKS. LEFT RESTING IWTH CALL LIGHT IN REACH.
--- NOTE | 2022-09-04 09:03 | NUR ---
MED REC COMPLETE
--- NOTE | 2022-09-04 10:30 | NUR ---
Pt in bathroom. Per RN, pt has not had a BM since admission.
--- NOTE | 2022-09-04 11:39 | NUR ---
PT. IV SALINE LOCKED AND NG CLAMPED AWAITING TRANSPORT TO IMAGING. DENIES NEEDS AT THIS TIME.
--- NOTE | 2022-09-04 12:21 | NUR ---
ROUNDING ON PT. HE REPORTS HE IS NOW PASSING GAS AND DENIES PAIN OR NAUSEA. RECONNECTED IVF AND NG TUBE TO WALL SUCTION. CALL LIGHT IN REACH.
--- NOTE | 2022-09-04 13:55 | NUR ---
PICKED UP PT. LUNCH TRAY AND COMPLETED 1400 VITALS SIGNS. PT. IS IN CHAIR, READING A BOOK, PT. REPORTS NO PAIN AND STATES HE IS COMFORTABLE. CALL LIGHT WITHIN REACH.
--- NOTE | 2022-09-04 14:09 | NUR ---
NG CANISTER FULL AND CHANGED OUT. ASSESSMENT COMPLETED. PT. DENIES NAUSEA OR PAIN. LEFT RESTING WITH CALL LIGHT IN REACH.
--- NOTE | 2022-09-04 14:24 | NUR ---
PT SITTING ON SIDE OF BED, LOOKING OUT WINDOW. PT STATED HE WOULD LIKE TO HAVE FR BRASWELL VISIT TODAY. WILL MAKE IT HAPPEN
--- NOTE | 2022-09-04 15:03 | NUR ---
IN THE ROOM. NG TUBE PULLED. PT. TOLERATED WELL. PT. LEFT RESTING WITH CALL LIGHT IN REACH.
--- NOTE | 2022-09-04 17:07 | NUR ---
ROUND ON PATIENT, PT. APPEARS TO BE COMFORTABLE AND RESTING WITH EYES CLOSED. RESPIRATIONS EVEN AND UNLABORED. IS AT THE BEDSIDE, TELEVISION IS ON. CALL LIGHT IS WITHIN REACH, NO OTHER APPARENT PT. NEEDS APPEARED AT THIS TIME.
--- NOTE | 2022-09-04 18:12 | NUR ---
PT. AMBULATED TO THE BATHROOM WITH STANDBY ASSIST AND RETURNED BACK TO BED AFTERWARDS. PT. IS EATING DINNER AND STATES "NO PAIN OR NAUSEA". VITALS COMPLETE AND WNL. CALL LIGHT WITHIN REACH, PT. HAS NO OTHER REQUESTED NEEDS.
--- NOTE | 2022-09-04 18:32 | NUR ---
PT. TOLERATING CLEAR FLUIDS AND DENIES NAUSEA OR DISCOMFORT. AT BEDSIDE. CALL LIGHT IN REACH.
--- NOTE | 2022-09-04 19:10 | NUR ---
RECEIVED REPORT FROM TAMAR LORA. PT RESTING IN BED A&O X4 WATCHING TV AT THIS TIME. STANDBY ASSIST W/PT TO RESTROOM AT THIS TIME, URINE VOID RECORDED. PT NOW BACK IN BED. IV FLUIDS INFUSING DIRECTED, SITE WNL. CALL LIGHT WITHIN REACH, NO FURTHER NEEDS AT THIS TIME.
--- NOTE | 2022-09-04 20:05 | NUR ---
IN PT ROOM FOR HIDE OR SKIN BUFFER, ASSESSMENT, VS. PT RESTING IN BED A&O X4 WATCHING TV. PT REPORTS NO PAIN, NAUSEA, SOB, N/T, DIZZINESS AT THIS TIME. BOWEL TONES ARE ACTIVE X4. PT REPORTS NO TENDERNESS OR DISTENTION AT THIS TIME. PULSES ARE PRESENT THROUGHOUT, LUNGS ARE CLEAR THROUGHOUT. PT USED IS X4 REACHING TOP OF SPIROMETER W/THIS RN IN ROOM. SKIN REMAINS INTACT, NO SIGN OF SKIN BREAKDOWN AT THIS TIME. IV SITE INFUSING CONTINUOUS FLUIDS DIRECTED, SITE WNL. VSS. CALL LIGHT WITHIN REACH, NO FURTHER NEEDS AT THIS TIME.
--- NOTE | 2022-09-04 22:13 | NUR ---
PT IN BED RESTING W/EYES CLOSED. RESPIRATIONS ARE EVEN AND UNLABORED, NO SIGNS OF DISTRESS. CALL LIGHT WITHIN REACH. IV FLUIDS INFUSING DIRECTED.
--- NOTE | 2022-09-04 23:29 | NUR ---
PT RESTING W/EYES CLOSED. RESPIRATIONS ARE EVEN AND UNLABORED, NO SIGNS OF DISTRESS. IV FLUIDS INFUSING DIRECTED. CALL LIGHT WITHIN REACH.
--- NOTE | 2022-09-05 00:46 | NUR ---
PT RESTING W/EYES CLOSED. RESPIRATIONS ARE EVEN AND UNLABORED, NO SIGNS OF DISTRESS. CALL LIGHT WITHIN REACH. IV FLUIDS INFUSING DIRECTED. PT APPEARS COMFORTABLE AT THIS TIME.
--- NOTE | 2022-09-05 02:43 | NUR ---
PT RESTING IN BED W/EYES CLOSED. RESPIRATIONS ARE EVEN AND UNLABORED, NO SIGNS OF DISTRESS. CALL LIGHT WITHIN REACH. IV FLUIDS INFUSING DIRECTED.
--- NOTE | 2022-09-05 03:20 | NUR ---
IN PT ROOM FOR NEW BAG OF IV FLUIDS. IV SITE WNL. NEW BAG IN PLACE. PT IS RESTING W/EYES CLOSED. RESPIRATIONS ARE EVEN AND UNLABORED, NO SIGNS OF DISTRESS. CALL LIGHT WITHIN REACH.
--- NOTE | 2022-09-05 05:34 | NUR ---
IN PT ROOM FOR VS AND I/O'S. PT RESTING IN BED POST LAB DRAW A&O. IV FLUIDS INFUSING DIRECTED. PT REPORTS NO PAIN OR NAUSEA. CALL LIGHT WITHIN REACH, NO FURTHER NEEDS AT THIS TIME.
--- NOTE | 2022-09-05 07:57 | NUR ---
IN ROOM TO COMPLETE FULL ASSESSMENT AND GET PT. UP FOR XR AND BREAKFAST. PT. AMBULATED TO THE BATHROOM AND IS NOW IN CHAIR, WAITING FOR XR TO COME PICK HIM UP. PT. REPORTS NO PAIN OR NAUSEA. CHANGED PT. GOWN. NO FURTHER NEEDS AT THIS TIME.
--- NOTE | 2022-09-05 09:00 | NUR ---
REPORT RECEIVED FROM NIGHT RN AND PT. CARE RESUMED. PT. IS ALERT AND ORIENTED TO ALL. EATING BREAKFAST AND TOLERATING WELL. DENIES PAIN OR NAUSEA. ASSESSMENT COMPLETED. LEFT RESTING IN THE CHAIR WITH CALL LIGHT IN REACH.
--- NOTE | 2022-09-05 09:33 | NUR ---
PT. HAD A FORMED BOWEL MOVEMENT. LOW FIBER BREAKFAST ORDERED.
--- NOTE | 2022-09-05 09:40 | NUR ---
IN ROOM TO COMPLETE VITALS AND ANSWER CALL LIGHT. PT. AMBULATED TO BATHROOM AND BACK TO HIS CHAIR. PT. APPEARS COMFORTABLE WHILE WATCHING TV. PT. IS WAITING FOR SECOND BREAKFAST TRAY NOW THAT HIS DIET ORDER HAS BEEN ADVANCED TO LOW FIBER. PT. WANTS A SHOWER IF HE IS NOT DISCHARGED TODAY, WAITING ON DOCTOR ORDERS. CALL LIGHT WITHIN REACH. NO FURTHER NEEDS AT THIS TIME.
--- NOTE | 2022-09-05 11:56 | NUR ---
PT ALERT, ORIENTED AND SITTING IN CHAIR WATCHING TV. NGT DC'D, PT FEELING MUCH BETTER. REQUESTED VISIT FROM FR TREVIZO TODAY. WILL MAKE IT HAPPEN. GAVE BLESSING AND WILL FOLLOW
--- NOTE | 2022-09-05 12:01 | NUR ---
PT. EATING LUNCH IN THE CHAIR. DENIES NEEDS AT THIS TIME. CALL LIGHT IN REACH
--- NOTE | 2022-09-05 13:32 | NUR ---
MD IN AND UPDATED ON PT. WILL DC TODAY.
--- NOTE | 2022-09-05 14:33 | NUR ---
UA COLLECTED PER ORDER. ALL DC INSTRUCTIONS REVIEWED. IV REMOVED WITH CATH INTACT. PT. LEFT WITH ALL BELONGINGS VIA WHEELCHAIR WITH AND SUPERVISOR [employer].
--- NOTE | 2022-09-05 14:52 | HP ---
[facility] [address], [place] [address] Signed ADMISSION DATE: 09/03/2022 REASON FOR ADMISSION: Small bowel obstruction (recurrent). HISTORY OF PRESENT ILLNESS: This 87-year-old white man is well known to me from the past having undergone an extended right colectomy for colon cancer in 2004. He generally maintains good health overall. Yesterday, he began having nausea without associated vomiting. His symptoms became worse including abdominal pain. He presented to the emergency room, was evaluated by Dr. Ray at approximately midnight. Although, I was not on-call, the patient asked if I would admit him as I have dealt with him over the past many years. He is admitted to my service for bowel obstruction. The patient had a nasogastric tube placed, which does seem to be draining a fair amount of fluid. His abdominal CT scan clearly showed a small bowel obstruction with a segment of small bowel showing a transition point in the right lower abdomen and a length of inflamed bowel. Extended right colectomy anatomy was noted with an ileocolic anastomosis noted in the low abdomen. The patient had no evidence of free air or other particular problem. LABORATORY STUDIES: Did show an elevated white count of 12.5. 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 " On that basis, he takes aspirin on a routine basis. The patient had splenectomy, cholecystectomy, left shoulder operation and extended right colectomy as previously noted. Additionally, the patient had a thoracoscopic decompression and pulmonary hematoma at time of previous admission by me related to overdistention of his lung during the course of general anesthesia. That problem resolved entirely. He additionally does have hypertension and hypothyroidism. MEDICATIONS: Current medicines include dorzolamide, folic acid, thiamine, vitamin D3, atorvastatin, fish oil tablet, Synthroid 25 mcg p.o. daily, Pepcid 40 mg p.o. daily, Proscar 5 mg p.o. daily, Xalatan eyedrops b.i.d., amlodipine 5 mg p.o. daily, aspirin 325 mg p.o. daily and vitamin B complex. Electronically Signed By: CHINA FULTON MD 09/05/22 1452 PATIENT NAME: ABHI BRASHER HISTORY AND PHYSICAL DATE OF : 35 REPORT #: [id number] PHYSICIAN: CHINA FULTON MD PCP: ARASH HYATT MD REPORT IS CONFIDENTIAL AND NOT TO BE RELEASED WITHOUT AUTHORIZATION [facility] [address] [place] [id number] Signed SOCIAL HISTORY: He is and long retired. Lives in [place]. He has two grown sons who live elsewhere. REVIEW OF SYSTEMS: He denies any shortness of breath or chest pain. He has had no dysphagia, dysuria or hematemesis. He has had no vomiting, though he has had nausea at time of presentation. PHYSICAL EXAMINATION: GENERAL: Pleasant white man. He is alert and oriented, not systemically toxic. VITAL SIGNS: Height 5 feet 6 inches, weight 71 kg. BMI 25.6. Temperature this morning 98.1, pulse 69, blood pressure 116/59, O2 saturation on room air 95%. Trachea is midline. CHEST: Clear. HEART: Regular without murmur. ABDOMEN: Nondistended and soft. He has no focal tenderness. Midline incision is noted. There is no hernia. EXTREMITIES: Show no clubbing, cyanosis, or edema. LABORATORY DATA: Lab studies show a white count of 12.5, hematocrit 39.3, platelets 318,000. Chem profile is normal. Glucose is 116. Liver enzymes normal. Lipase 61. Urinalysis pH is 8.5, RBCs 21-40 per high-power field, white cells 0 to 1. Serology confirms no evidence of coronavirus, RSV or influenza. Plain chest x-ray affirming the nasogastric tube position shows good positioning of the nasogastric tube. It is highly functioning. CT scan was reviewed as was the report confirming distended loops of small bowel consistent with small bowel obstruction. There is no evidence of free air. ASSESSMENT: The patient has small bowel obstruction (recurrent). The patient himself thinks it may be related to several handfuls of nuts that he ate. He had been advised in the distant past to avoid eating nuts on the basis of prior bowel obstruction. Whether I made that recommendation or not I cannot remember as it has been nearly 20 years, however, he certainly has had small bowel obstruction in the past, which has resolved without operative intervention. We are hopeful and optimistic that might occur again. We will maintain nasogastric tube decompression, intravenous fluid administration, and monitor his progress. If necessary surgeon small-bowel follow-through and possible laparotomy for remedy of bowel obstruction may be needed. We discussed this in detail. He understands and agrees. Electronically Signed By: CHINA FULTON MD 09/05/22 1452 PATIENT NAME: ABHI BRASHER HISTORY AND PHYSICAL DATE OF : 35 REPORT #: [id number] PHYSICIAN: CHINA FULTON MD PCP: ARASH HYATT MD REPORT IS CONFIDENTIAL AND NOT TO BE RELEASED WITHOUT AUTHORIZATION [facility] [address] [place], [place] [address] Signed MD EBER Sarabia/DARRYLL /[id number] cc: Arash Hyatt MD [facility] Copies: ARASH HYATT MD ~ Electronically Signed By: CHINA FULTON MD 09/05/22 1452 PATIENT NAME: ABHI BRASHER HISTORY AND PHYSICAL DATE OF : 35 REPORT #: [id number] PHYSICIAN: CHINA FULTON MD PCP: ARSAH HYATT MD REPORT IS CONFIDENTIAL AND NOT TO BE RELEASED WITHOUT AUTHORIZATION
== END 2022-09-05 14:34 | disposition home or self-care (01) | DRG 390 ==
LOC: ED 00:40 → MS 02:47
PROVIDERS: ADMIT Surgery; ATTEND Surgery
DX: K56.609 Unspecified intestinal obstruction, unspecified as to partial versus complete obstruction (principal); Z20.822 Contact with and (suspected) exposure to COVID-19; H40.9 Unspecified glaucoma; E03.9 Hypothyroidism, unspecified; E78.00 Pure hypercholesterolemia, unspecified; Z85.51 Personal history of malignant neoplasm of bladder; Z90.49 Acquired absence of other specified parts of digestive tract; Z88.1 Allergy status to other antibiotic agents; Z88.6 Allergy status to analgesic agent; Z88.8 Allergy status to other drugs, medicaments and biological substances; Z79.82 Long term (current) use of aspirin; Z79.899 Other long term (current) drug therapy
CPT/HCPCS: 36415; 71045; 74018; 74177; 80048; 80053; 81001; 83690; 85025; 87502; J1170; J1644; J1885; J2405; J3010; J7121; Q9967; U0003

== ENCOUNTER 2022-09-07 21:02 | Inpatient (IN) | payer MEDICARE ==
[~2022-09-07] VITALS: Ht 167.6 cm; Wt 69.1 kg
[~2022-09-07 21:02] MED LIST changes: +B-1100 MG PO; +DORZOLAMIDE HCL10 ML OP; +VITAMIN D325 MCG PO
--- NOTE | 2022-09-07 22:18 | NUR ---
PT TO FLOOR APPROX 2114. ALERT AND ORIENTED. AMBULATED INDEPENDENTLY ACCOMPANIED BY HIS . ORDERS RECEIVED. IV STARTED AND LABS SENT. PT DOWN TO IMAGING AND BACK TO BED. DENIES NAUSEA. REPORTS ABD "SORE". BOWEL TONES ACTIVE. ABD SOFT. PT ORIENTED TO ROOM AND NURSE CALL LIGHT. DENIES QUESTIONS OR CONCERNS AT THIS TIME. CALL LIGHT IN REACH.
--- NOTE | 2022-09-07 23:20 | NUR ---
DR. FULTON UPDATED ON XRAY RESULTS. NEW TELEPHONE ORDERS RECEIVED VERIFIED WITH READBACK METHOD.
--- NOTE | 2022-09-07 23:34 | NUR ---
PT REPORTS ABD PAIN 11/17. PRN FOR PAIN ADMIN PER EMAR. REPORTS BRIEF NAUSEA, REFUSES PRN N/V WHEN OFFERED. ICE CHIPS PROVIDED. URINAL EMPTIED. NO FURTHER NEEDS.
--- NOTE | 2022-09-08 01:03 | NUR ---
PT RESTING IN BED ON RIGHT SIDE WITH EYES CLOSED. RESPIRATIONS EVEN. CALL LIGHT IN REACH.
--- NOTE | 2022-09-08 02:23 | NUR ---
PT RESTING WITH EYES CLOSED. AWAKENS EASILY. VS AND I&O COMPLETE. PT REPORTS HE IS RESTING COMFORTABLY. DENIES PAIN OR NAUSEA. NO NEEDS AT THIS TIME. CALL LIGHT IN REACH.
--- NOTE | 2022-09-08 04:26 | NUR ---
PT RESTING IN BED WITH EYES CLOSED. RESPIRATIONS EVEN. CALL LIGHT IN REACH.
--- NOTE | 2022-09-08 05:20 | NUR ---
PT RESTING WITH EYES CLOSED. AWAKENS EASILY. VS AND I&O COMPLETE. PT REPORTS PAIN "NON EXISTENT". DENIES NAUSEA. BOWEL TONES ACTIVE. ABD SOFT. PT REPORTS FLATUS. FEW ICE CHIPS TAKEN THROUGH THE NIGHT. PT DENIES FURTHER NEEDS. CALL LIGHT IN REACH.
--- NOTE | 2022-09-08 06:00 | NUR ---
PT CALL LIGHT ANSWERED. PT ASSISTED UP TO BATHROOM SBA. PT INSTRUCTED TO PULL CORD WHEN COMPLETE. PT COMPLETE IN BATHROOM.PT HAD A X1 BM WHICH WAS SEMI FORMED. PARTIAL LIQUID STOOL. PT BACK TO BED. PT CO OF STOMACH QUEASINESS. RN NOTIFIED. NO FURTHER NEEDS. CALL LIGHT WITHIN REACH
--- NOTE | 2022-09-08 07:28 | NUR ---
Received report from table games shift manager RN. Patient awake resting in bed with visiting.
--- NOTE | 2022-09-08 08:09 | NUR ---
medications reconciled
--- NOTE | 2022-09-08 08:24 | NUR ---
PATIENT WATCHING TV. PATIENT WENT HOME ON THURSDAY BUT RETURNED BECAUSE OF ABD. PAIN FROM [facility].PATIENT LIVES WITH HIS AND USES NO DME AT THIS TIME. PATIENT LIVES IN HIS HOUSE AND HAS NO FOOD INSECURITIES.
--- NOTE | 2022-09-08 08:51 | NUR ---
PATIENT TO IMAGING, VIA WHEELCHAIR, FOR SBFT STUDY.
--- NOTE | 2022-09-08 10:00 | NUR ---
PATIENT IS BACK FROM HIS SBFT.
--- NOTE | 2022-09-08 10:47 | NUR ---
PATIENT UP TO BATHROOM TO VOID/BM. URINE SAMPLE SENT TO LAB. CLEAR ENSURE GIVEN TO PATIENT.
--- NOTE | 2022-09-08 12:29 | NUR ---
THIS NURSE HELPED PATIENT GET FROM THE CHAIR TO THE RESTROOM AND BACK TO BED. PT GIVEN WARM BLANKET. CALL LIGHT IN REACH.
--- NOTE | 2022-09-08 13:57 | NUR ---
PATIENT DENIES ABDOMINAL PAIN, PATIENT RESTING IN BED.
--- NOTE | 2022-09-08 14:08 | NUR ---
PT SITTING IN CHAIR READING. PT SAID THE WEEKEND WAS KIND OF ROUGH, BUT PT LOOKS LIKE HE HAS REBOUNDED WELL. PT REQUESTED A VISIT FROMK THE PASTRY FINISHER. I WILL INFORM FR BRASWELL. GAVE BLESSING AND WILL FOLLOW
--- NOTE | 2022-09-08 16:53 | NUR ---
PATIENT IS UP TO CHAIR AND READING A BOOK. PATIENT ENDORSES THAT ABD PAIN IS GONE, HAS NOT HAD ANY FLANK PAIN. DISCUSSES WITH PATIENT RE: DR. THAYER FOLLOW UP APPOINTMENT. PATIENT DENIES NEEDS.
--- NOTE | 2022-09-08 17:56 | NUR ---
PATIENT UP TO BATHROOM AND BACK TO CHAIR, SBA. VITALS AND I&O'S CHARTED. CALL LIGHT IN REACH. NO FURTHER NEEDS AT THIS TIME.
--- NOTE | 2022-09-08 19:34 | NUR ---
REPORT RECEIVED FROM DAY SHIFT RN. PT SITTING IN RECLINER ALERT AND ORIENTED. DENIES PAIN OR NAUSEA. NO NEEDS AT THIS TIME. CALL LIGHT IN REACH.
--- NOTE | 2022-09-08 20:58 | NUR ---
EVENING ASSESSMENT COMPLETE. SCHEDULED MEDS ADMIN PER EMAR. PT REPORTS "SORENESS" IN CENTER OF ABD 08/19. PT DENIES PRN FOR PAIN. WARM COMPRESS PROVIDED. DENIES NAUEA. SBA TO BR TO VOID. GAIT STEADY. BACK TO BED, MILADIS WELL. IVF INFUSING PER ORDER. PT DENIES QUESTIONS OR CONCERNS. CALL LIGHT IN REACH.
--- NOTE | 2022-09-08 22:53 | NUR ---
PT RESTING IN BED ON LEFT SIDE. EYES CLOSED. RESPIRATIONS EVEN. CALL LIGHT IN REACH.
--- NOTE | 2022-09-09 02:13 | NUR ---
CALL LIGHT ANSWERED. IN TO EMPTY URINAL. PT SITTING UP IN BED READING, REPORTS DIFFICULTY SLEEPING. WARM TEA AND FRESH WATER PROVIDED. DENIES PAIN OR NAUSEA. NO FURTHER NEEDS.
--- NOTE | 2022-09-09 03:52 | NUR ---
PT LYING IN BED ON RIGHT SIDE. EYES CLOSED. RESPIRATIONS EVEN. CALL LIGHT IN REACH.
--- NOTE | 2022-09-09 06:20 | NUR ---
PT AWAKE IN BED. VS AND I&O OBTAINED. DENIES PAIN OR NAUSEA. WARM TEA AND FRESH WATER PROVIDED. PT DENIES FURTHER NEEDS. CALL LIGHT IN REACH.
--- NOTE | 2022-09-09 07:18 | NUR ---
Received report from night time babysitter nurse. Pt up and headed to get CT done this morning around 8am scheduled time.
--- NOTE | 2022-09-09 07:42 | NUR ---
NICOLÁS FROM IMAGING ADVISED THIS NURSE THAT PATIENT IS UNABLE TO HAVE CT SCAN DONE TODAY DUE TO THE FACT THAT HE HAD A SBFT YESTERDAY. ADVISED THAT PATIENT SHOULD WAIT A FEW DAYS TO LET THE BARIUM CLEAR.
--- NOTE | 2022-09-09 08:01 | NUR ---
PER PHONE VERBAL ORDER FROM PATIENT TAKEN DOWN TO XRAY FOR A KUB.
--- NOTE | 2022-09-09 08:04 | NUR ---
PATIENT BACK TO ROOM FROM [facility].
--- NOTE | 2022-09-09 08:22 | HP ---
[facility] [address] [place], [place] [address] Signed ADMISSION DATE: 09/07/2022 REASON FOR ADMISSION: Recurrent abdominal pain, possible recurrent bowel obstruction. HISTORY OF PRESENT ILLNESS: This 87-year-old white man is well known to me from the past. He was recently admitted between September 03 [address] scan findings and clinical findings consistent with small-bowel obstruction. The patient has a distant history of extended right hemicolectomy for colon cancer as well as cholecystectomy. He has had recurrent bowel obstructions over the years. His original operation was in 2004. He was managed during his recent hospitalization with nasogastric tube decompression, IV fluids and bowel rest. Ultimately, his symptoms resolved. Abdominal x-ray appeared normal and he was discharged. Yesterday (Thursday) in the morning, he was feeling epigastric pain to a degree. He had no nausea or vomiting particularly, but did have intolerance of oral intake generally speaking. He had decreased appetite. He did try some soft boiled eggs as well as yogurt which he tolerated but not well. I was called by his last night about these symptoms and I offered that he remain on clear liquids for outpatient evaluation versus admission to the hospital. Given his symptoms, his and the patient himself preferred readmission. PAST MEDICAL HISTORY: As previously described as well as with glaucoma, hypothyroidism, dyslipidemia, and a recent transient hematuria on urinalysis. Since admission with IV fluids but without placement of nasogastric tube, he remains reasonably comfortable. His plain abdominal x-ray done at the time of admission last night showed a normal bowel gas pattern. No evidence of ascites, mass or bowel obstruction in any way. A small-bowel follow-through has been ordered for today. REVIEW OF SYSTEMS: He denies any chest pain or shortness of breath. He has had no hematemesis or blood per rectum. PHYSICAL EXAMINATION: GENERAL: Pleasant, elderly white man who is alert and oriented without systemic toxicity. VIAL SIGNS: Temperature on admission was 98.4, currently 97.6; blood pressure 122/57 Electronically Signed By: CHINA FULTON MD 09/09/22 0822 PATIENT NAME: ABHI BRASHER HISTORY AND PHYSICAL DATE OF : 35 REPORT #: [id number] PHYSICIAN: CHINA FULTON MD PCP: ARASH HYATT MD REPORT IS CONFIDENTIAL AND NOT TO BE RELEASED WITHOUT AUTHORIZATION [facility] [address] [place], [place] [address] Signed and now 137/58, pulse is now 64. HEENT: Mucous membranes are moist. Trachea is midline. CHEST: Shows normal respiratory excursion. Pulse is regular. ABDOMEN: Nondistended. Palpation reveals no focal mass, but minimal epigastric tenderness. EXTREMITIES: Show no clubbing, cyanosis, or edema. LABORATORY STUDIES: On admission show a white count of 9.7, hematocrit of 35.5, platelets of 328,000. Chem profile is essentially normal. Glucose 121, albumin 2.7, globulin 4.2, amylase 41. Serology is negative for COVID. Urinalysis was not performed, but will be repeated given his transient hematuria noted previously. ASSESSMENT: Source of his abdominal pain, discomfort, and so forth is uncertain, but appears less likely to be a bowel obstruction at this point. A small-bowel follow-through will more readily be clear that to be the case. The unlikely possibility of recurrent colon cancer is considered, though previous CT scan on hospitalization showed no evidence of the same. His previous hospitalization CT scan did show dilated loops of bowel, highly suggestive of bowel obstruction at that time. At this point, we will await the small bowel follow-through as well as obtain urinalysis. MD EBER Sarabia/DARRYLL /[id number] cc: Arash Hyatt MD Copies: ARASH HYATT MD ~ Electronically Signed By: CHINA FULTON MD 09/09/22 0822 PATIENT NAME: ABHI BRASHER HISTORY AND PHYSICAL DATE OF : 35 REPORT #: [id number] PHYSICIAN: CHINA FULTON MD PCP: ARASH HYATT MD REPORT IS CONFIDENTIAL AND NOT TO BE RELEASED WITHOUT AUTHORIZATION
--- NOTE | 2022-09-09 10:12 | NUR ---
PATIENT UP TO BATHROOM AND BACK TO CHAIR, SBA. PATIENT OFFERED SHOWER. PATIENT REFUSED. CALL LIGHT IN REACH. NO FURTHER NEEDS AT THIS TIME.
--- NOTE | 2022-09-09 11:59 | NUR ---
PT DRESSED, WAITING FOR DC. THANKED ME FOR VISITING AND ARRANGING VISITS FROM . GAVE BLESSING
--- NOTE | 2022-09-10 09:36 | DS ---
[facility] [address], [place] [address] Signed ADMISSION DATE: 09/07/2022 DISCHARGE DATE: 09/09/2022 REASON FOR ADMISSION: This 87-year-old white man, who was recently hospitalized by me for bowel obstruction as demonstrated by clinical findings and a CT scan. His hospitalization was between September 03 and September 05. He has a distant history extended right hemicolectomy for colon cancer as well as cholecystectomy. He has had recurrent bowel obstructions over many years. His recent hospitalization included nasogastric tube decompression, IV fluids and bowel rest with resolution of his symptoms. It is notable that he had initial urinalysis that showed a increased number of red cells per high-power field. Prior to his discharge, repeat urinalysis showed no significant blood in the urine. The patient went home with a low-fiber diet and doing well, but I was called by his late on September 07, 2022, with him complaining of epigastric pain. He had no associated nausea or vomiting, but did have intolerance of oral intake and epigastric pain generally speaking. Mindful that he may have recurrent small bowel obstruction symptoms. He is readmitted for further evaluation and care. PERTINENT PHYSICAL EXAMINATION: GENERAL: Showed a pulse of 64, blood pressure 137/58, temperature of 98.4. NECK: Showed no thyromegaly or cervical adenopathy and no hoarseness. CHEST: Clear. HEART: Regular without murmur. ABDOMEN: Nondistended and generally not tender. Midline incision was well-healed without signs of hernia. HOSPITAL COURSE: The patient was given IV fluids and bowel rest. A nasogastric tube was not placed. Abdominal x-ray at time of admission showed reasonably normal bowel gas pattern with no evidence of ascites or mass or findings of bowel obstruction proper. On the basis of these ambiguous findings related to his recent hospitalization for small-bowel obstruction, he underwent a small-bowel follow-through on September 08, 2022. Prompt emptying of the bowel into the sigmoid remnant was noted without sign of obstruction. Numerous diverticula were noted of the remaining sigmoid. A repeat urinalysis was performed, notable for large blood in the urine with rbc's 41-50 Electronically Signed By: CHINA FULTON MD 09/10/22 0936 PATIENT NAME: ABHI BRASHER DISCHARGE SUMMARY DATE OF : 35 REPORT #: [id number] PHYSICIAN: CHINA FULTON MD PCP: ARASH LAKHANI MD REPORT IS CONFIDENTIAL AND NOT TO BE RELEASED WITHOUT AUTHORIZATION [facility] [address], [place] [address] Signed per high-power field, white cells 0-1. He had rare bacteria. On the basis of this finding it was considered possible and maybe even probable that a nephrolithiasis or genitourinary problem accounting for his more recent symptoms. It is recalled that he had a CT scan when he presented on September 03 through the emergency room, which did not show evidence of renal neoplasm, ureteral tumor nor kidney stone, though admittedly he did not undergo uro abdomen CT, only a conventional iv contrast ct. I conferred with Dr. Somers, who has set up a plan to see him for flexible cystoscopy on September 22. She did recommend a CT scan IVP to assess for renal, ureteral, and urologic associated abnormalities. Unfortunately, the contrast in the small bowel would preclude meaningful interpretation of the CT scan and therefore, it will be deferred until next week. He was promptly returned to a liquid diet and a regular diet, which he tolerated well. By time of discharge, he is doing quite well and is essentially symptom-free. It is anticipated he will follow up with Dr. Somers in the near future, and an imaging study as previously described will be obtained next week. A cystoscopy was already planned for September 22. DISCHARGE DIAGNOSES: 1. Recurrent abdominal pain, recent small-bowel obstruction. 2. Recurrent abnormal urinalysis (hematuria). 3. Distant history extended right hemicolectomy for colon cancer. 4. Chronic recurrent abdominal pain and bowel obstruction. 5. Glaucoma. FOLLOW UP: No scheduled visit to see me back will be anticipated at this time, though he will be coordinating further with Dr. Dayton Somers for cystoscopy and further urologic followup. If he has problems, I am available to him of course. DISCHARGE MEDICATIONS: Will include atorvastatin, Synthroid 25 mcg p.o. daily, Pepcid 40 mg p.o. daily, aspirin enteric-coated 325 mg p.o. daily, timolol Timoptic 0.5% drops each eye b.i.d., finasteride, Proscar 5 mg p.o. daily, Xalatan 0.005% drops one drop each eye at bedtime for glaucoma, amlodipine 5 mg p.o. daily, vitamin B complex one p.o. daily and vitamin D3 1000 unit tablet p.o. daily. Electronically Signed By: CHINA FULTON MD 09/10/22 0936 PATIENT NAME: ABHI BRASHER DISCHARGE SUMMARY DATE OF : 35 REPORT #: [id number] PHYSICIAN: CHINA FULTON MD PCP: ARASH LAKHANI MD REPORT IS CONFIDENTIAL AND NOT TO BE RELEASED WITHOUT AUTHORIZATION [facility] [address] [place], [place] [address] Signed MD EBER Sarabia/DARRYLL /[id number] cc: MD Arash Bernardo MD Copies: DAYTON SOMERS MD, MALCOLM MD ~ Electronically Signed By: CHINA FULTON MD 09/10/22 0936 PATIENT NAME: SAMEERAABHI HELIO DISCHARGE SUMMARY DATE OF : 35 REPORT #: [id number] PHYSICIAN: CHINA FULTON MD PCP: ARASH LAKHANI MD REPORT IS CONFIDENTIAL AND NOT TO BE RELEASED WITHOUT AUTHORIZATION
== END 2022-09-09 11:25 | disposition home or self-care (01) | DRG 392 ==
LOC: MS 21:02
PROVIDERS: ADMIT Surgery; ATTEND Surgery
DX: R10.13 Epigastric pain (principal); R31.9 Hematuria, unspecified; H40.9 Unspecified glaucoma; Z20.822 Contact with and (suspected) exposure to COVID-19; E03.9 Hypothyroidism, unspecified; E78.5 Hyperlipidemia, unspecified; Z90.49 Acquired absence of other specified parts of digestive tract
CPT/HCPCS: 36415; 74018; 74250; 80048; 80053; 81001; 82150; 82378; 85025; 87088; J1885; J7121; U0003